=== PATIENT | male | born 1995 | race Caucasian/White ===

== ENCOUNTER 2016-12-15 14:14 | Emergency (ER) | payer MEDICAID, OTHER ==
[~2016-12-15] VITALS: Ht 182.9 cm; Wt 106.8 kg
[2016-12-15 15:31] VITALS: BP 132/71
== END 2016-12-15 16:02 | disposition home or self-care (01) ==
LOC: EMS 14:23
DX: B09 Unspecified viral infection characterized by skin and mucous membrane lesions (principal); M79.1 Myalgia; R09.81 Nasal congestion; R05 Cough
CPT/HCPCS: 99283

== ENCOUNTER 2017-04-16 18:35 | Emergency (ER) | payer OTHER ==
[~2017-04-16] VITALS: Ht 182.9 cm; Wt 103.2 kg
[2017-04-16 18:41] VITALS: BP 134/98
[2017-04-16] MEDS ORDERED: OMEP20 PO (18:44)
== END 2017-04-16 20:20 | disposition left against medical advice (07) ==
LOC: EMS 18:37
DX: R10.9 Unspecified abdominal pain (principal); K62.5 Hemorrhage of anus and rectum; Z53.21 Procedure and treatment not carried out due to patient leaving prior to being seen by health care provider

== ENCOUNTER 2017-12-14 20:35 | Emergency (ER) | payer OTHER ==
[~2017-12-14] VITALS: Ht 182.9 cm; Wt 118.2 kg
[~2017-12-14 20:35] MED LIST: OMEP20 PO
[2017-12-14] MEDS ORDERED: ACETAMINOPHEN 500 MG TABLET PO ONE (21:00)
[2017-12-14 22:40] VITALS: BP 133/88
== END 2017-12-14 23:12 | disposition home or self-care (01) ==
LOC: EMS 20:36
DX: B34.9 Viral infection, unspecified (principal); Z91.018 Allergy to other foods
CPT/HCPCS: 99284